=== PATIENT | female | born 1965 | race Caucasian/White ===

== ENCOUNTER 2018-12-24 07:56 | Day surgery (SDC) | payer BC, SELFPAY ==
[2018-12-24] VITALS (9 sets, daily range): BP systolic 94–141; BP diastolic 49–77; PULSE 47–57; RESP 16; TEMP 36–36.6; O2SAT 95–100; BMI 31.0
[2018-12-24 08:40] LABS: Bedside Glucose 159 mg/dL (70-110)
[2018-12-24] MEDS: Cefazolin 2 GM in 0.9% Normal Saline 100 ML IV (08:55)
--- NOTE | 2018-12-24 09:30 | MASS_PTH ---
PATIENT: GIA VILLASENOR [place] [facility] [id number] AGE/SX: 53/F ROOM: RE12/24/[address]: Dr. Cheyenne Mills DPM : 1965 BED: DIS: 12/24/2018 SPEC #: [id number] RECD: 12/24/18 10:15 STATUS: ANAMIKA RELaquita #: [id number] VIKY: 12/24/18 09:[address]: Cheyenne Mills DEPT: SURGICAL PATHOLOGY RECD BY: Polo Louis ENTERED: 12/24/18 11:13 SP TYPE: Mass OTHR DR: Shanique Frias, GLASS RIBBON MACHINE OPERATOR-Radha Tissues: A - Right ankle Procedures: Surgery Specimen Level III HEADER OPERATION: Excision ganglion foot PRE-OP DIAGNOSIS: Ganglion right ankle and foot TISSUE SUBMITTED: Soft tissue mass, right ankle, two long sutures otoniel distal end MICROSCOPIC DIAGNOSIS Soft tissue mass, right ankle, excision: Consistent with ganglion cyst. AM:chay 12/25/18 MICROSCOPIC DESCRIPTION Slides are reviewed. GROSS DESCRIPTION Received in fixative is one container labeled with the patient's name and designated soft tissue mass right ankle. The specimen consists of multiple irregular fragments of rubbery, yellow tissue ranging in size from 0.2 to 6 cm. The largest fragment contains two sutured areas. The area contains a double suture and has been designated as the distal half. This sutured area and corresponding half is inked in black ink. The opposite half is inked in blue ink. The smaller fragments are submitted entirely in cassette 1. The larger fragment is serially sectioned and totally submitted in cassettes 2-4. / AM:chay 12/24/18 TC:5 CPT: 85919 ADDENDUM ADDENDUM ADDENDUM ADDENDUM ADDENDUM ADDENDUM ADDENDUM ADDENDUM 01/04/2019 10:32 ADDENDUM 01/04/2019 10:32 ADDENDUM 01/04/2019 10:32 ADDENDUM 01/04/2019 10:32 ADDENDUM 01/04/2019 10:32 The majority of the specimen consists of mature adipose tissue. This case was reviewed and diagnosis discussed with Dr. Mills on 01/04/19 at 10:10 a.m. Case has been reviewed in consultation with Dr. Tong who concurs with the above diagnosis. IDC:SJ
[2018-12-24] MEDS: Bupivacaine Mpf 0.5% 30 ML VIAL (09:40)
--- NOTE | 2018-12-24 10:04 | PCM.DC.ORTHO ---
Discharge Activity: May Not Drive, May not drive while taking narcotic pain medications., May Not Shower, Use Walker, Use Crutches Ice area for (Minutes): 20 - apply ice behind right knee 20 minutes of each hour while awake Weight Bearing Status: No weight bearing Keep extremity elevated above heart level: Operative Extremity Call your doctor if your incision/area has: Sudden Increased Bleeding Call your doctor if you observe: Fever of 101 or Higher, Shortness of breath, Dizziness, Chest pain, Increased palpitations (irregular heartbeat), Calf discomfort, Uncontrolled pain Cleanse incision/area with: Keep Dressing Clean & Dry Allergies/Adverse Reactions: Allergies No Known Allergies Allergy (Verified 12/15/18 15:15) Medications to take at Discharge Metformin HCl 500 mg PO DAILY 12/15/18 Metoprolol Succinate 25 mg PO DAILY 12/15/18 Ranitidine [Zantac] 150 mg PO DAILY PRN 12/15/18 Vitamin B Complex 1 each PO DAILY 12/15/18 Hydrocodone Bitart/Apap 5-325 [[place] 5MG-325MG] 1 tab PO Q4H PRN PRN 7 Days #28 tab 12/24/18 The following prescriptions were given: Hydrocodone Bitart/Apap 5-325 [[place] 5MG-325MG] 1 tab PO Q4H PRN PRN 7 Days #28 tab PRN Reason: Pain Primary Care Physician: Shanique Frias NP-C [Primary Care Provider] - Test Results: Test results from this visit will be discussed in further detail at your follow-up appointment, if applicable. Please Follow Up With: Cheyenne Mills DPM - Please follow up next week at your previously scheduled post operative appointment. Proposed Discharge Date: 12/24/18
--- NOTE | 2018-12-24 10:07 | DCINST_ITS ---
Discharge Activity: May Not Drive, May not drive while taking narcotic pain medications., May Not Shower, Use Walker, Use Crutches Ice area for (Minutes): 20 - apply ice behind right knee 20 minutes of each hour while awake Weight Bearing Status: No weight bearing Keep extremity elevated above heart level: Operative Extremity Call your doctor if your incision/area has: Sudden Increased Bleeding Call your doctor if you observe: Fever of 101 or Higher, Shortness of breath, Dizziness, Chest pain, Increased palpitations (irregular heartbeat), Calf discomfort, Uncontrolled pain Cleanse incision/area with: Keep Dressing Clean & Dry Allergies/Adverse Reactions: Allergies No Known Allergies Allergy (Verified 12/15/18 15:15) Medications to take at Discharge Metformin HCl 500 mg PO DAILY 12/15/18 Metoprolol Succinate 25 mg PO DAILY 12/15/18 Ranitidine [Zantac] 150 mg PO DAILY PRN 12/15/18 Vitamin B Complex 1 each PO DAILY 12/15/18 Hydrocodone Bitart/Apap 5-325 [[place] 5MG-325MG] 1 tab PO Q4H PRN PRN 7 Days #28 tab 12/24/18 The following prescriptions were given: Hydrocodone Bitart/Apap 5-325 [[place] 5MG-325MG] 1 tab PO Q4H PRN PRN 7 Days #28 tab PRN Reason: Pain Primary Care Physician: Shanique Frias NP-C [Primary Care Provider] - Test Results: Test results from this visit will be discussed in further detail at your follow- up appointment, if applicable. Please Follow Up With: Cheyenne Mills DPM - Please follow up next week at your previously scheduled post operative appointment. Proposed Discharge Date: 12/24/18
--- NOTE | 2018-12-24 10:10 | OP.PCM_ITS ---
Report of Operation Date of Procedure: 12/24/18 Pre-Operative Diagnosis: R foot soft tissue mass Ddx: ganglion vs juxta ar ticular myxoma vs low grade fibromyxoid sarcoma vs myxoid myxofibrosarcoma Post-Operative Diagnosis: same Surgery/Procedure Performed:: R foot soft tissue mass excision Description of Surgical Findings:: see dictation wanigan clerk: Lalo Brewer Type of Anesthesia:: Local MAC Specimen's removed: R foot soft tissue mass, tagged distal end 2 long suture and proximal end one short suture Drains: aureliano Estimated Blood Loss (mL): minimal Description of Procedure: Indications: Pt is a 53 yo F who presented to my clinic with complaints of a R lateral midfoot mass that had become increasingly painful, firm and larger over the prior 6 months. No known injury. 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 Patient was referred urgently to orthopedic oncology with a copy of her imaging and report. Dr. Garcia felt it was a ganglion and suggested excision. She returned to my office for the procedure as it was closer to home for her. Patient presents today for surgical intervention. All risks, complications, and alternatives were discussed with the patient, and the patient signed an informed consent. No guarantees were given. Procedure: On 12/24/2018, Merline Irwin was visually and verbally identified in the preoperative holding area. The consent form was again reviewed with the patient, as were all risks, complications, and alternatives and the patient wished to proceed with the proposed surgery. The right foot was marked as the correct operative extremity. The patient was brought to the operating room and placed on the operating room table in the lazy lateral position. After induction by anesthesia, a surgical time out was performed and all present were in agreement. a pneumatic thigh tourniquet was then placed. At this time the right lower extremity was prepped and draped in the usual sterile fashion. The right lower extremity was elevated and the tourniquet was inflated to 300mmHg without exsanguination with a esmarch. 10 cc of 0.5 % marcaine plain was injected. At this time attention was directed to the right lateral midfoot. The soft tissue mass was identified and marked. A lazy S incision was drawn over the mass. Using a #15 blade an incision was made. The incision was bluntly carried deep through the subcutaneous tissues with careful attention paid to all bleeders, which were clamped and tied or bovied as necessary. All vital neurovascular structures were retracted. Blunt dissection was continued as the soft tissue mass borders were identified. A firm, yellow, opaque nodule was identified with adipose like tissue surrounding it. deep to the mass a stalk that contained a gelatinous like substance was identified and appeared to originate from the CC joint. The yellow firm nodule did extend proximally superficial to the peroneal tertius tendo nand did not appear to communicate with the tendon sheath at all. The mass was excised with the proximal end tagged with two long sutures and the distal end tagged with one short suture. This was sent along with the gelatinous substance to pathology. The mass did not appear to have increased vasculature. The incision was flushed with copious amounts of normal sterile saline. Hemostasis was obtained and closure was initiated. 3.0 vicryl was used for deep and subcutaneous layers and 3.0 prolene was used for skin sutures. A aureliano drain was placed in end of the incision with an untied prolene suture that will be hand-tied in the office once the drain is pulled. This suture was secured with steri strips. Adaptic and dry sterile dressing were applied in a bolus like dressing to the the incision along with a multi layer compressive dressing and a well padded posterior splint. An additional 10 cc of 0.5 % marcaine plain was injected. The patient tolerated the procedure and anesthesia well. The patient was then transported to the postanesthesia care unit by a member of the anesthesia team and myself with all vital signs stable and neurovascular status of the right lower extremity equal to pre-operative levels. At the end of the case all sponge, needle and instrument counts were found to be correct. Grafts/Implants Used: none - Complications none - Admit VTE Documentation VTE Present on Admission: No VTE Mechan Device Prophylaxis: SCD's, Knee High ERIBERTO Hose VTE Pharm Prophylaxis ordered?: Yes
[2018-12-24] MEDS: Ketorolac 15 MG/ML Vial IV (11:35)
== END 2018-12-24 12:09 | disposition home or self-care (01) ==
LOC: SDC 07:57 → AC 07:58
PROVIDERS: Family Provider Nurse Practitioner Family; PCP Nurse Practitioner Family; Referring Provider Podiatrist Foot & Ankle Surgery; Visit Provider Podiatrist Foot & Ankle Surgery
PROC: (CPT 28090; principal; 2018-12-24 09:15)
DX: M67.471 Ganglion, right ankle and foot (principal); Z79.899 Other long term (current) drug therapy; Z79.84 Long term (current) use of oral hypoglycemic drugs; E11.9 Type 2 diabetes mellitus without complications; I10 Essential (primary) hypertension; E66.3 Overweight; Z68.31 Body mass index [BMI] 31.0-31.9, adult
CPT/HCPCS: 01470; 28090; 82962; 88304; 88305; J7120; J2405